=== PATIENT | female | born 2000 | race Caucasian/White ===

== ENCOUNTER 2025-03-07 19:48 | Emergency (ER) | payer OTHER ==
[~2025-03-07] VITALS: Ht 180.3 cm; Wt 99.8 kg
[2025-03-07] MEDS ORDERED: Cyclobenzaprine Hydrochlorid 10 MG TAB PO ONE (21:50)
[2025-03-07] MEDS ORDERED: IBUPROFEN 800 MG TAB PO ONE (21:50)
[2025-03-07] MEDS ORDERED: CYCLOBENZAPRINE10 MG PO (23:25)
[2025-03-07] MEDS ORDERED: Motrin,Rufen800 MG PO (23:25)
== END 2025-03-07 23:30 | disposition home or self-care (01) ==
LOC: ED 19:48
DX: S00.83XA Contusion of other part of head, initial encounter (principal); R07.2 Precordial pain; Y04.0XXA Assault by unarmed brawl or fight, initial encounter; Y93.89 Activity, other specified; Y92.89 Other specified places as the place of occurrence of the external cause; Y99.8 Other external cause status